=== PATIENT | female | born 1955 | race Caucasian/White ===

== ENCOUNTER 2016-08-22 09:19 | Inpatient (IN) ==
[2016-08-22] MEDS ORDERED: NS 2,000 ML ONE (09:26)
[2016-08-22] MEDS ORDERED: ZOFRAN ONE (09:42)
[2016-08-22] MEDS ORDERED: ZOFRAN IV ONE (09:46)
[2016-08-22] MEDS ORDERED: NS 1,000 ML IV ONE ×3 (09:46→14:23)
[2016-08-22] MEDS ORDERED: ASPIRIN PO STA (09:47)
[2016-08-22] MEDS ORDERED: DECADRON IV ONE (10:02)
[2016-08-22 10:28] LABS: MANUAL DIFF NEEDED? NO
[2016-08-22 10:37] LABS: BASO% 0.2 % (0.0-0.8); EOS# 0.25 X1000 (0.0-0.7); EOS% 1.6 % (0.0-10.0); HEMATOCRIT 48.1 % (37.0-47.0); HEMOGLOBIN 16.5 g/dL (12.0-16.0); IMM GRAN# 0.03 X1000 (0.0-0.04); IMM GRAN% 0.2 % (0.0-0.5); LYMPH# 2.18 X1000 (1.2-3.4); LYMPH% 13.8 % (20.5-51.1); MCH 31.5 PG (27-31); MCHC 34.3 g/dL (33-37); MCV 91.8 FL (81-99); MONO# 0.68 X1000 (0.11-0.59); MONO% 4.3 % (1.7-9.3); MPV 10.3 FL (7.4-10.4); NEUT% 79.9 % (42.2-75.2); PLT 278 X1000 (130-400); RBC 5.24 XMIL (4.2-5.4)
[2016-08-22 10:44] LABS: INR 1.09; PROTIME 11.5 Seconds (9.2-11.7)
--- NOTE | 2016-08-22 10:50 | Diag Imaging Result Doc PS360 ---
EXAM: CHEST-1 VIEW HISTORY: BEDSIDE TECHNIQUE: Portable upright AP COMPARISON: None. FINDINGS: The lungs are well expanded. The heart is not enlarged. The vessels are not distended. There are no infiltrates. No effusion identified. IMPRESSION: Negative exam.. Electronically signed by Rashad Madrid 08/22/2016 10:48 AM
[2016-08-22 11:09] LABS: AGAP 17; ALBUMIN 3.7 g/dL (3.5-5.0); ALKALINE PHOSPHATASE 95 U/L (32-104); BUN 14 mg/dL (8-22); CALCIUM 9.3 mg/dL (8.8-10.2); CHLORIDE 105 mmol/L (98-107); CK PROFILE 62 U/L (24-173); COSMO 291; GOT 19 U/L (10-30); GPT 19 U/L (10-36); MAGNESIUM 1.8 mg/dL (1.5-2.7); POTASSIUM 3.1 mmol/L (3.5-5.1); SODIUM 143 mmol/L (136-145); TCO2 21 mmol/L (25-35); TOTAL BILIRUBIN 0.33 mg/dL (0.20-1.00); TOTAL PROTEIN 6.5 g/dL (6.3-8.3)
[2016-08-22 11:25] LABS: AMYLASE 1682 U/L (20-200)
[2016-08-22 11:26] LABS: LIPASE 2609 U/L (13-60)
[2016-08-22 12:21] LABS: URINE CULTURE NEEDED? NO; URINE SOURCE CLEAN CATCH
[2016-08-22 12:27] LABS: BILIRUBIN URINE NEGATIVE (NEGATIVE); BLOOD URINE NEGATIVE (NEGATIVE); COLOR YELLOW; GLUCOSE URINE TRACE mg/dL (NEGATIVE); LEUKOCYTES URINE NEGATIVE (NEGATIVE); NITRITE URINE NEGATIVE (NEGATIVE); PH URINE 5.5; PROTEIN URINE 70 mg/dL (NEGATIVE); SP GRAVITY URINE 1.024; TURBIDITY URINE HAZY (CLEAR); UROBILINOGEN URINE NORMAL (NORMAL)
[2016-08-22 12:31] LABS: URINE MICRO REVIEW NEEDED? YES
[2016-08-22 12:45] LABS: UR EPITHELIAL CELLS <10 /HPF (<10); URINE BACTERIA NEGATIVE /HPF; URINE RBC <10 /HPF (<10); URINE WBC <10 /HPF (<10)
[2016-08-22 12:54] LABS: UR AMPHETAMINES QUAL NONE DETECTED (NONE DETECT); UR BARBITUATES QUAL NONE DETECTED (NONE DETECT); UR BENZODIAZEPIN QUAL NONE DETECTED (NONE DETECT); UR CANNABINOIDS QUAL NONE DETECTED (NONE DETECT); UR COCAINE QUAL NONE DETECTED (NONE DETECT); UR METHADONE QUAL NONE DETECTED (NONE DETECT); UR OPIATES QUAL NONE DETECTED (NONE DETECT); UR OXYCODONE QUAL NONE DETECTED (NONE DETECT); UR PCP QUAL NONE DETECTED (NONE DETECT)
[2016-08-22 13:03] LABS: URINE CASTS NONE SEEN
--- NOTE | 2016-08-22 13:45 | Diag Imaging Result Doc PS360 ---
EXAM: ABD/PELVIS/PULM ARTERIES HISTORY: N/V HYPOTENSION, ELEVATED D-DIMER TECHNIQUE: CT chest with contrast. Coronal MIP images obtained. CT abdomen and pelvis with contrast. COMPARISON: Abdomen and pelvis is compared to 09/10/2011. FINDINGS: Chest: Normal opacification of the pulmonary arteries and their major branches. no thoracic aortic aneurysm or dissection. No cardiomegaly. No pleural effusions. There are small mediastinal lymph nodes. There is an 8 mm nodule in the mid right lower lobe on image 105. No consolidation. No bronchiectasis Abdomen and pelvis: No calcified gallstones or adjacent inflammation. Normal liver, spleen, pancreas, and adrenal glands. Normal enhancement of the kidneys. No hydronephrosis. Normal aorta. Mildly distended loops of small bowel in the upper left and lower right abdomen. Questionable mild wall thickening in the lower right abdomen and pelvis. No inflammation about the cecum. No abscess. Trace fluid is found in the pelvis. The urinary bladder is not distended. The uterus is small. No pelvic mass. IMPRESSION: Chest: 1. No pulmonary bullae 2. No pneumonia 3. Subcentimeter nodule in the right lower lobe Abdomen and pelvis: 1. Mild fatty infiltration of the liver 2. I believe the patient has enteritis 3. No abscess. 4. Small scattered mesenteric nodes could even indicate mild adenitis Electronically signed by Rashad Madrid 08/22/2016 1:42 PM
[2016-08-22] MEDS ORDERED: FLAGYL 500 MG/NS 500 MG/100 ML IVPB IV ONE (13:48)
[2016-08-22] MEDS ORDERED: SODIUM CHLORIDE 0.9% INJ ONE (13:48)
[2016-08-22] MEDS ORDERED: ZOSYN 3.375 GM/NS 3.375 GM/50 ML IVPB IV ONE (13:48)
[2016-08-22] MEDS ORDERED: PHENERGAN IV ONE (13:48)
--- NOTE | 2016-08-22 14:17 | PROVIDER DOCUMENTATION ---
This chart was entered by Elizabeth Copoer Scribe, acting as scribe for London Tavarez PA. HPI-General Adult - General Chief Complaint: General Adult Stated Complaint: POSS ALLERGIC REACTION Time Seen by Provider: 08/22/16 09:35 Source: patient Allergies/Adverse Reactions: Patient Allergies Allergy/AdvReac Type Severity Reaction Status Date / Time No Known Allergies Allergy Verified 08/22/16 09:55 - History of Present Illness -Gen Adult Nature of Presenting Problems: 61 yo F presents to the ER with complaint of sudden onset of n/v/d and weakness onset this morning. Also complains of macular rash from face to her torso. Pt states she was drinking coffee and eating cake that was prepared x6 days ago and suddenly had n/v/d. Upon arrival pt's systolic BP was 60. Pt reports taking 12 random "vitamins" that she does not know the name of because she saw them on social media and it said they are "good for you". Had a similar reaction x6 days ago when she had glucomanna. Onset/Duration: reports: 1-3 hours ago Associated Symptoms: reports: diarrhea, nausea, vomiting, weakness. denies: cough, shortness of breath Review of Systems - Adult - REVIEW OF SYSTEMS - ADULT Constitutional: denies: chills, fever Eyes: reports: no symptoms reported Ears, Nose, Mouth & Throat: reports: no symptoms reported Cardiovascular: denies: chest pain, palpitations Respiratory: denies: cough, shortness of breath Gastrointestinal: reports: diarrhea, nausea, vomiting. denies: abdominal pain Genitourinary: reports: no symptoms reported Musculoskeletal: reports: no symptoms reported Integumentary: reports: no symptoms reported Neurological: reports: no symptoms reported Psychiatric: reports: no symptoms reported Endocrine: reports: no symptoms reported Hematologic/Lymphatic: reports: no symptoms reported Allergic/Immunologic: reports: no symptoms reported All Other Systems: Reviewed and Negative Past History - Adult - PAST MEDICAL HISTORY-ADULT Review of Records: reports: Nursing Assessment Review, Medications Reviewed - PRIOR SURGERIES/PROCEDURES Surgical/Procedure History: reports: BTL - IMMUNIZATION STATUS Childhood Immunizations: See Nurse Assessment Flu Vaccine: See Nurse Assessment Physical Exam-General - PHYSICAL EXAM-ADULT Initial Vital Signs Reviewed: Yes - CONSTITUTIONAL General Appearance: alert, no apparent distress - EYES Eyes: PERRL/EOMI, pink conjunctivae - HEAD, EARS, NOSE, MOUTH & THROAT HENMT: normocephalic/atraumatic, normal ENT inspection - NECK Neck: supple, normal inspection - RESPIRATORY Respiratory: no respiratory distress, no accessory muscle use - CARDIOVASCULAR Cardiovascular: normal peripheral pulses, regular rate, rhythm - GASTROINTESTINAL (ABDOMEN) Abdominal Exam: normal bowel sounds, non tender, soft. negative: distended, guarding, rebound, tenderness - MUSCULOSKELETAL Back Exam: no CVA tenderness, no vertebral tenderness Extremity: normal gait, normal inspection - SKIN Integumentary: normal color, warm/dry - NEUROLOGIC Neurologic: grossly normal, no motor/sensory deficits - PSYCHIATRIC Psych/Mental Status: normal mood/affect, normal thought content, normal thought process, oriented x 3 Progress - PLAN OF CARE/RESULTS Progress/Plan/Lab Results: Vital Signs - 8 hr 08/22/16 09:22 Pulse Rate 100 H Respiratory Rate 16 Blood Pressure 62/30 O2 Sat by Pulse Oximetry 96 Orders Category Date Time Status 0.9% Sodium Chloride Inj [Ns] 2,000 ml Med 08/22/16 09:26 Discontinued .ROUTE As Directed Result Diagrams: 08/22/16 10:19 08/22/16 10:19 - REASSESSMENT Reassessment #1 Time Reassessed: 13:56 (London BALES given a presentation to Dr. Doyle to admit pt ) Reassessment #2 Time Reassessed: 14:09 (Discussed c pt and family at bedside who agreed c admission. ) - EKG 1 Time of EKG reading by physician:: 09:27 EKG Read and Signed by:: Natalia Doyle EKG Interpretation (*Must complete 3 of following elements*): Normal Rate: 69 Rhythm: normal sinus rhythm [place]: normal QRS: normal [place] Interval: normal ST Wave: normal - XRAY 1 XRAY Study: Chest Impression: Normal (negative exam, per radiologist) - CT/MRI 1 CT Study: Abdomen, Pelvis, other (pulmonary arteries) Impression: Abnormal ( FINDINGS: Chest: Normal opacification of the pulmonary arteries and their major branches. no thoracic aortic aneurysm or dissection. No cardiomegaly. No pleural effusions. There are small mediastinal lymph nodes. There is an 8 mm nodule in the mid right lower lobe on image 105. No consolidation. No bronchiectasis Abdomen and pelvis: No calcified gallstones or adjacent inflammation. Normal liver, spleen, pancreas , and adrenal glands. Normal enhancement of the kidneys. No hydronephrosis. Normal aorta. Mildly distended loops of small bowel in the upper left and lower right abdomen. Questionable mild wall thickening in the lower right abdomen and pelvis. No inflammation about the cecum. No abscess. Trace fluid is found in the pelvis. The urinary bladder is not distended. The uterus is small. No pelvic mass. IMPRESSION: Chest: 1. No pulmonary bullae 2. No pneumonia 3. Subcentimeter nodule in the right lower lobe Abdomen and pelvis: 1. Mild fatty infiltration of the liver 2. I believe the patient has enteritis 3. No abscess. 4. Small scattered mesenteric nodes could even indicate mild adenitis) - CONSULTS/PCP/HOSPITALIST Notification #1 *Consult/PCP/Hospitalist*: Dr. Crawford / Michael RICHTER (Hospitalist) Time Discussed: 14:16 Reason/Comments: Will see pt in the ER and write all admission orders. Departure - Departure Date of Disposition Decision: 08/22/16 Time of Disposition Decision: 14:16 DIAGNOSIS: Enteritis Pancreatitis Qualifiers: Chronicity: acute Pancreatitis type: unspecified pancreatitis type Acute pancreatitis complication: unspecified Qualified Code(s): K85.90 - Acute pancreatitis without necrosis or infection, unspecified Hypotension Qualifiers: Hypotension type: unspecified hypotension type Qualified Code(s): I95.9 - Hypotension, unspecified Disposition: ADMITTED INPATIENT 09 Certified Medical Emergency: Emergent Condition: Stable Referrals and Follow-Ups: Antelmo Farrell MD [Primary Care Provider] - - Critical Care Note This patient required my direct & personal management of CC.: No Attestation - Physician/ TRENT Attestation Patient care was provided by Advanced Practice Provider:: Yes Advanced Practice Provider:: London Tavarez Advanced Practice Provider documentation review:: The Mid-level provider documentation, treatment plan and medical decision making was reviewed by the physician who agrees with all treatment and medical decision making by the MLP. This chart was documented by the indicated scribe, (Elizabeth Cooper Scribe) and accurately reflects the services I performed and decisions made by me, London Tavarez PA, as attested by the provider's signature.
[2016-08-22 14:43] LABS: HDL 69 mg/dL (45-65); LDL 138 mg/dL; TRIGLYCERIDES 115 mg/dL (35-135); VLDL 23 mg/dL
[2016-08-22] MEDS ORDERED: ZOFRAN IV PRN (16:26)
[2016-08-22] MEDS: POTASSIUM CHLORIDE 20 MEQ/SWI 20 MEQ/100 ML IVPB IV SCH (18:57)
[2016-08-22] MEDS: NS 1,000 ML IV SCH ×2 (18:57→23:06)
--- NOTE | 2016-08-22 20:17 | HISTORY AND PHYSICAL ---
PRIMARY CARE PHYSICIAN: Dr. Antelmo Farrell. CHIEF COMPLAINT: Dizziness, nausea, vomiting, diarrhea. HISTORY OF PRESENT ILLNESS: Mrs. Ochoa is a very pleasant, 61-year-old female with no medical problems, who presents to the ER with presyncope, nausea, vomiting, and diarrhea. A few days back she took an [id number]-aai-grxayty colon cleanse, the name is glucomannan fiber. She only took 1 of these pills. She started having some nausea, vomiting, and diarrhea after that. It has lasted for around 2 days, stopped and then restarted this morning. She also is having some urticaria but was not in any respiratory distress. No wheezing or angioedema. She came into the ER and was noted to be hypertensive on arrival but this was corrected with fluid resuscitation. Her laboratory data showed some leukocytosis and hemoconcentration. It also shows lipase of 2,609. A subsequent CT of the abdomen and pelvis showed mild enteritis and small scattered mesenteric nodes. Could even indicate mild adenitis. There was also fatty infiltration of the liver. With fluid resuscitation and antiemetics the patient is feeling much better. She denies any a fevers or chills. No chest pain or shortness of breath. No lower extremity edema. No orthopnea. She is still having quite a bit of diarrhea and we have ordered stool studies for this, but we are now going to admit her for further treatment and evaluation. PAST MEDICAL HISTORY: None. PAST SURGICAL HISTORY: Tubal ligation. SOCIAL HISTORY: Patient denies tobacco, alcohol, or drug use. She is and has 1 child. She works in home health. FAMILY HISTORY: Fairly significant for cancer. Brother with pancreatic cancer. Mother with colon cancer. Father with pneumonia and old age. REVIEW OF SYSTEMS: Fourteen-point review of systems obtained and found to be negative with the exception of the HPI. HOME MEDICATIONS: Patient takes no prescribed medication. She does take multiple over-the- counter vitamins and minerals. ALLERGIES: None. PHYSICAL EXAMINATION: VITAL SIGNS: Blood pressure is 125/70, heart rate is 80, respiratory rate 20, O2 saturation 98% on room air, temperature is 98.4 degrees. GENERAL: Well-developed, well-nourished, 61-year-old female, lying in hospital bed, in no acute distress. NEUROLOGIC: The patient is awake, alert, oriented. She follows commands without focal deficits. HEENT: Head atraumatic, normocephalic. Pupils equal, round, reactive to light. Oral mucosa is moist. Trachea is midline. NECK: No JVD or carotid bruits. CHEST: Clear to auscultation bilaterally. CV: Regular rate and rhythm. S1, S2 is noted. GI: Left upper quadrant tenderness to palpation. Otherwise, belly is soft, nondistended, nontender. Bowel sounds positive. EXTREMITIES: Without edema, clubbing, or cyanosis. Pulses palpable bilaterally. DIAGNOSTIC DATA: Abdomen and pelvis CT, please see HPI. WBC 15.81, hemoglobin 16.5, hematocrit 48.1, platelet count 278,000. INR 1.09. D-dimer 12.81. Sodium 143, potassium 3.1, chloride 105, CO2 21, anion gap 17, BUN 14, creatinine 0.9, glucose is 191. LFTs within normal limits. Troponin negative. CRP is 0.41. Albumin 3.7, total cholesterol 230, LDL 138, HDL 69, amylase 1,682, lipase 2,609, lactate 1.8. UA is negative. Toxicology screen is negative. ASSESSMENT AND PLAN: 1. Acute pancreatitis/enteritis: This is likely secondary to the [id number] colon cleansing pill. The patient has no other risk factors for pancreatitis. CT shows some mild enteritis and adenitis. However, we will go ahead and get GI to see her. Will continue bowel rest, IV fluids, and antiemetics. We have encouraged her not to take any supplements or medications without checking with her primary care provider first. 2. Diarrhea: We ordered stool studies. But again, this is likely secondary to colon cleanse. 3. Leukocytosis: This is likely reactive. She has no fever. We are checking stool studies for infection and she has gotten a dose of Zosyn and Flagyl in the ER. Will hold off on that for now. 4. Hypokalemia: Replacing. Recheck in the morning. 5. Profoundly elevated D-dimer: Unclear of the significance. However, CT of the pulmonary arteries was done and did not show any PE and abdomen and pelvis CT did not show any portal vein thrombosis. 6. Deep vein thrombosis prophylaxis will be provided with Lovenox. Further recommendations to follow. Dictated by ROBER Lee for Ashley Velez MD cc: ROBER Lee MD Kirk L. Jackson, MD
--- NOTE | 2016-08-22 23:15 | CONSULTATION ---
DATE OF CONSULTATION: 08/22/2016 REFERRING PHYSICIAN: Ho Crawford MD PRIMARY CARE PROVIDER: Antelmo Farrell MD. INDICATION FOR CONSULTATION: Acute pancreatitis. HISTORY OF PRESENT ILLNESS: The patient is a 61-year-old white female who states that she was in her usual state of health until a few days ago when she was admitted with nausea with vomiting, abdominal pain, syncope and elevated amylase and lipase. She reports having essentially no medical problems. She was in her usual state of health until she purchased at a colon cleanse supplement named glucomannan that contains Amorphophallus konjac as a laxative for constipation. Within 2 hours of taking the medication, she developed itching, hives, dizziness, lightheadedness, and had an episode of syncope. The family brought her to the emergency room when she became unresponsive for over a minute. The patient states that she has never had a similar situation until she took the supplement. She currently takes no prescribed medications as she has essentially no medical problems. On CT scan she was noted to have mild fatty liver, enteritis and mesenteric lymph nodes in the right lower quadrant consistent with mild adenitis. Otherwise, her CT scan was unremarkable for the cause of her symptoms. We are asked to participate in her care. PAST MEDICAL HISTORY: 1. Constipation. 2. Hyperlipidemia. 3. History of cataracts. PAST SURGICAL HISTORY: Tubal ligation. MEDICATION ALLERGIES: None. SOCIAL HISTORY: Negative for alcohol, tobacco or recreational drug use. FAMILY HISTORY: Her mother of colon cancer at age 56 years of age. PHYSICAL EXAMINATION: Vital signs: Her blood pressure is 125/70, pulse of 80, respirations 20, temperature of 98.4 degrees. Her height is 5 feet 6 inches tall and her weight is 162 pounds. HEENT: Unremarkable. Her oropharyngeal mucosal membranes are moist. Her neck is supple. Pulmonary: Lungs are clear to auscultation with normal expiratory effort. Cardiovascular: Reveals regular rate and rhythm with no murmurs, gallops, or rubs. Abdominal: Reveals normoactive bowel sounds. The abdomen is soft, nontender, with no rebound or guarding. Extremities: Bilaterally are negative for cyanosis, clubbing, or edema. OBJECTIVE DATA: Reveals a hemoglobin of 16.5 with hematocrit of 48.1 and a white count of 15.81. She has 278,000 platelets. Her PT is 11.5 with an INR of 1.09 and a PTT of 25. Her D-dimer is elevated at 12.81. Sodium is 143, potassium 3.1, chloride 105, CO2 21, BUN 14, creatinine 0.9, and glucose of 191. Calcium is 9.3, magnesium 1.8, total bilirubin 0.33, AST 19, ALT 19, alkaline phosphatase 95. Her total protein is 6.5, with an albumin of 3.7. CK is 62 with a troponin of less than 0.010. Her CRP is 0.41. Her cholesterol is 230 with a triglyceride of 115. Her amylase was 1682 with a lipase of 2609. Her plasma lactate is 1.8. Her urinalysis is negative and her toxicology screen is negative. IMPRESSION: 1. Likely drug-induced pancreatitis. 2. Nonspecific enteritis. 3. Allergic reaction to fiber supplement. 4. Polycythemia. 5. Elevated D-dimer. RECOMMENDATION: 1. The patient was instructed to avoid this particular fiber supplement in the future. I will evaluate this medication in the [facility] alternative database to determine if there are any other potential sequelae. 2. Please continue supportive care. I will advance her diet to a full liquid diet as she has had resolution of her abdominal pain, nausea and vomiting. 3. It is uncertain as to why she has evidence of polycythemia and elevated white blood cell count. I suspect that the enteritis may be real in light of her leukocytosis. 4. The cause of her polycythemia is unclear. Please hydrate the patient and repeat the CBC. She may require additional evaluation if it is persistently elevated. 5. The patient has an unexplained leukocytosis and possible enteritis on CT scan. If she develops diarrhea, I recommend considering antibiotics for enteritis. At this time, she is minimally symptomatic and therefore it is prudent to monitor her for the next 24 hours to determine if any intervention is required. 6. I will advance her diet as tolerated to a full liquid diet. 7. Additional recommendations will be based on her clinical course and the results of her ongoing evaluation. cc: MD Ho Villalta MD Kirk L. Jackson, MD
[2016-08-23] MEDS: NS 1,000 ML IV SCH ×2 (04:02→06:02)
[2016-08-23] MEDS: POTASSIUM CHLORIDE 20 MEQ/SWI 20 MEQ/100 ML IVPB IV SCH ×2 (04:12→07:43)
[2016-08-23 05:47] LABS: HEMATOCRIT 37.9 % (37.0-47.0); HEMOGLOBIN 12.8 g/dL (12.0-16.0); MCH 32.2 PG (27-31); MCHC 33.8 g/dL (33-37); MCV 95.2 FL (81-99); MPV 10.4 FL (7.4-10.4); RBC 3.98 XMIL (4.2-5.4)
[2016-08-23 06:20] LABS: AGAP 15; ALBUMIN 3.7 g/dL (3.5-5.0); ALKALINE PHOSPHATASE 77 U/L (32-104); BUN 7 mg/dL (8-22); CALCIUM 8.8 mg/dL (8.8-10.2); CHLORIDE 109 mmol/L (98-107); COSMO 287; GOT 19 U/L (10-30); GPT 18 U/L (10-36); POTASSIUM 3.9 mmol/L (3.5-5.1); SODIUM 145 mmol/L (136-145); TCO2 21 mmol/L (25-35); TOTAL PROTEIN 6.4 g/dL (6.3-8.3)
--- NOTE | 2016-08-23 07:02 | EKG Report ---
Test Performed on : 08/22/2016 09:27:19 AM Test Reason : Chest Pain Blood Pressure : / mmHG Vent. Rate : 069 BPM Atrial Rate : 069 BPM P-R Int : 158 ms QRS Dur : 082 ms QT Int : 426 ms P-R-T Axes : 083 027 063 degrees QTc Int : 456 ms Normal sinus rhythm. Normal ECG No previous ECGs available Unconfirmed Result
[2016-08-23 07:31] VITALS: BP 139/76
[2016-08-23] MEDS ORDERED: LOVENOX SUBQ SCH (09:00)
--- NOTE | 2016-08-24 15:20 | DISCHARGE SUMMARY ---
ADMISSION DATE: 08/22/2016 DISCHARGE DATE: 08/23/2016 CONSULTATIONS: Dr. Bhavna Paz with Gastroenterology. PERTINENT PROCEDURES: Abdomen and pelvis CT showed no pulmonary emboli. No pneumonia. Subcentimeter nodule in the right lower lobe. Mild fatty infiltration of the liver. Enteritis. No abscess. Small scattered mesenteric nodes. Could even indicate mild adenitis. DISCHARGE DIAGNOSES: 1. Drug-induced pancreatitis. Resolved. 2. Nonspecific enteritis. Resolved. 3. Hemoconcentration due to Dehydration. improved 4. Elevated D-dimer. CT of the chest showed no pulmonary emboli. HOSPITAL COURSE: Briefly, Ms. Ochoa is a 61-year-old female with no past medical problems presented to the ED with presyncope, nausea, vomiting diarrhea. The patient states she took an over-the- counter colon cleanse named Glucomannan Fiber. She already took 1 pill. She started having nausea, vomiting and diarrhea after that. It lasted around 2 days, stopped and then restarted on the morning of her admission. She started having some urticaria but no respiratory distress. No wheezing or angioedema. She came to the ED and was noted to be hypotensive on arrival but was corrected with fluid resuscitation. Her laboratory data showed some leukocytosis and hemoconcentration. It showed lipase of 2609. A subsequent CT of the abdomen and pelvis showed a mild enteritis and small scattered mesenteric nodes, could even indicate mild adenitis. There was also fatty infiltration of the liver. With fluid resuscitation and antiemetics the patient was feeling better. The patient did continue to have diarrhea. All stool studies that were ordered were negative. GI was consulted for the patient's acute pancreatitis. The patient was instructed to avoid this particular fiber supplement in the future. Her nausea and vomiting has resolved. She has been tolerating her diet. Her diarrhea has also resolved. Her white count has trended down as well as her hemoglobin and hematocrit. Her lipase is down to 134. The patient is being discharged back home today on her regular diet. VITAL SIGNS: Temperature is 98 degrees, heart rate 90, respirations 18, blood pressure 139/76, O2 is 100% on room air. DISCHARGE DIET: Regular. DISCHARGE MEDICATIONS: None. FOLLOWUP: Patient is being discharged home with instructions to avoid taking this particular fiber supplement. She is to follow up with her primary care physician, Dr. Antelmo Farrell, in 7-10 days. She can return to the ED for any worsening of symptoms. Dictated by ROBER Mann for Ho Crawford MD cc: MD Antelmo Cho MD MTDD
== END 2016-08-23 13:24 | disposition home or self-care (01) ==
LOC: ED 09:19 → 4N 14:38
PROVIDERS: ATTEND Internal Medicine